=== PATIENT | male | born 1970 | race Caucasian/White ===

== ENCOUNTER 2019-01-05 12:38 | Emergency (ER) | payer BC ==
--- NOTE | 2019-01-05 13:14 | EDM.PDOC ---
ED HPI GENERAL MEDICAL PROBLEM - General Chief Complaint: ENT Problem Stated Complaint: SORE THROAT Time Seen by Provider: 01/05/19 12:47 Source of Information: Reports: Patient History Limitations: Reports: No Limitations - History of Present Illness INITIAL COMMENTS - FREE TEXT/NARRATIVE: HISTORY AND PHYSICAL: History of present illness: Patient is a 48-year-old male who presents to the emergency room with complaints of sore throat and sensation of swelling. He states he does have a history of tonsillitis and strep throat. He denies any difficulty breathing, drooling or shortness of breath. Patient denies any fever, chills, headache, change in vision, syncope or near syncope. Denies any chest pain, back pain, or cough. Denies any abdominal pain, nausea, vomiting, diarrhea, constipation or dysuria. Has not noted any blood in urine or stool. Patient has been eating and drinking appropriately. Review of systems: As per history of present illness and below otherwise all systems reviewed and negative. Past medical history: As per history of present illness and as reviewed below otherwise noncontributory. Surgical history: As per history of present illness and as reviewed below otherwise noncontributory. Social history: See social history for further information Family history: As per history of present illness and as reviewed below otherwise noncontributory. Physical exam: General: Well-developed and well-nourished 48-year-old male. Alert and oriented. Nontoxic appearing and in no acute distress. HEENT: Atraumatic, normocephalic, pupils equal and reactive bilaterally, negative for conjunctival pallor or scleral icterus, mucous membranes moist, TMs normal bilaterally, throat erythematous without exudate (no pillar shifting or fullness), neck supple, nontender, trachea midline. No drooling or trismus noted. No meningeal signs. No hot potato voice noted. Lungs: Clear to auscultation, breath sounds equal bilaterally, chest nontender. Heart: S1S2, regular rate and rhythm without overt murmur Abdomen: Soft, nondistended, nontender. Negative for masses or hepatosplenomegaly. Negative for costovertebral tenderness. Pelvis: Stable nontender. Genitourinary: Deferred. Rectal: Deferred. Skin: Intact, warm, dry. No lesions or rashes noted. Extremities: Atraumatic, moves all extremities per self without difficulty or deficits, negative for cords or calf pain. Neurovascular unremarkable. Neuro: Awake, alert, oriented. Cranial nerves II through XII unremarkable. Cerebellum unremarkable. Motor and sensory unremarkable throughout. Exam nonfocal. Notes: Due to patient's physical examination and past history and treat him with Augmentin and a Medrol Dosepak. Supportive care measures were reviewed and discussed. Voices understanding and is agreeable to plan of care. Denies any further questions or concerns at this time. Diagnostics: None Therapeutics: None Prescription: Augmentin Medrol Dosepak Impression: Pharygitis Plan: 1. Use cough drops as needed for throat discomfort. Drink plenty of fluids to stay hydrated. 2. Take antibiotic and medrol dosepak as directed.. 3. Alternate Ibuprofen and Tylenol as needed for discomfort. 3. Follow up with your primary care provider. 4. Return to the ED as needed and as discussed. Definitive disposition and diagnosis as appropriate pending reevaluation and review of above. Throat Pain Score (Numeric/FACES): 6 - Related Data Allergies Allergy/AdvReac Type Severity Reaction Status Date / Time No Known Allergies Allergy Verified 01/05/19 12:58 Home Meds: Home Meds Fenofibrate [Lipofen] 160 mg PO DAILY 12/26/14 [History] Losartan/Hydrochlorothiazide [Losartan-HCTZ 100-25 MG] 1 tab PO DAILY 12/26/14 [ History] Amoxicillin/Clavulanate K [Augmentin 875-125 MG] 1 tab PO BID 20 Days #10 tab [Rx] Canagliflozin [Invokana] 300 mg PO DAILY 01/05/19 [History] amLODIPine Besylate [Amlodipine Besylate] 5 mg PO DAILY 01/05/19 [History] metFORMIN HCl [Metformin HCl ER] 2,000 mg PO DAILY 01/05/19 [History] methylPREDNISolone [Medrol] 1 dose PO DAILY #1 dospk 01/05/19 [Rx] ED ROS ENT - Review of Systems Review Of Systems: ROS reveals no pertinent complaints other than HPI. ED EXAM, ENT - Physical Exam Exam: See Below (See dictation) Course - Vital Signs Last Recorded V/S: Last Vital Signs Temp 97.7 F 01/05/19 12:56 Pulse 119 H 01/05/19 13:43 Resp 18 01/05/19 13:43 BP 145/93 H 01/05/19 13:43 Pulse Ox 93 L 01/05/19 13:43 Departure - Departure Time of Disposition: 13:13 Disposition: Home, Self-Care 01 Clinical Impression: Pharyngitis Qualifiers: Pharyngitis/tonsillitis etiology: other specified organisms Qualified Code(s): J02.8 - Acute pharyngitis due to other specified organisms - Discharge Information Prescriptions: Amoxicillin/Clavulanate K [Augmentin 875-125 MG] 1 tab PO BID 20 Days #10 tab methylPREDNISolone [Medrol] 1 dose PO DAILY #1 dospk Instructions: Pharyngitis, [id number] Referrals: PCP,None [Primary Care Provider] - Forms: ED Department Discharge Additional Instructions: The following information is given to patients seen in the emergency department who are being discharged to home. This information is to outline your options for follow-up care. We provide all patients seen in our emergency department with a follow-up referral. The need for follow-up, as well as the timing and circumstances, are variable depending upon the specifics of your emergency department visit. If you don't have a primary care physician on staff, we will provide you with a referral. We always advise you to contact your personal physician following an emergency department visit to inform them of the circumstance of the visit and for follow-up with them and/or the need for any referrals to a consulting specialist. The emergency department will also refer you to a specialist when appropriate. This referral assures that you have the opportunity for follow-up care with a specialist. All of these measure are taken in an effort to provide you with optimal care, which includes your follow-up. Under all circumstances we always encourage you to contact your private physician who remains a resource for coordinating your care. When calling for follow-up care, please make the office aware that this follow-up is from your recent emergency room visit. If for any reason you are refused follow-up, please contact the [facility] Emergency Department at and asked to speak to the emergency department charge nurse. [facility] [address] [place] [id number] [facility] [address] [place] [address] 1. Use cough drops as needed for throat discomfort. Drink plenty of fluids to stay hydrated. 2. Take antibiotic and medrol dosepak as directed.. 3. Alternate Ibuprofen and Tylenol as needed for discomfort. 3. Follow up with your primary care provider. 4. Return to the ED as needed and as discussed.
[2019-01-05 13:48] VITALS: BP 145/93
== END 2019-01-05 13:43 | disposition home or self-care (01) ==
LOC: MW.ED 12:38
DX: J02.8 Acute pharyngitis due to other specified organisms (principal); Z79.899 Other long term (current) drug therapy
CPT/HCPCS: 99282; 99283

== ENCOUNTER 2021-09-02 07:05 | Emergency (ER) | payer BC ==
--- NOTE | 2021-09-02 07:06 | EDM.PDOC ---
ED HPI GENERAL MEDICAL PROBLEM - General Stated Complaint: FEVER, COUGH Time Seen by Provider: 09/02/21 07:06 Source of Information: Reports: Patient History Limitations: Reports: No Limitations - History of Present Illness INITIAL COMMENTS - FREE TEXT/NARRATIVE: 51-year-old male past medical history hypertension, diabetes presents for nausea, vomiting, diarrhea, fever, cough. Patient notes that he received his Covid vaccination booster shot 3 days ago. The next day he began to develop subjective fevers, nonproductive cough, body aches, nausea, mild sore throat. He attributed these symptoms to side effects of the booster vaccination. Symptoms continued yesterday. This morning he developed vomiting and noticed his oxygenation to be 88% on home pulse oximeter. This prompted him to seek medical attention. - Related Data Allergies Allergy/AdvReac Type Severity Reaction Status Date / Time No Known Allergies Allergy Verified 01/05/19 12:58 Home Meds: Home Meds Fenofibrate [Lipofen] 160 mg PO DAILY 12/26/14 [History] Losartan/Hydrochlorothiazide [Losartan-HCTZ 100-25 MG] 1 tab PO DAILY 12/26/14 [History] Canagliflozin [Invokana] 300 mg PO DAILY 01/05/19 [History] amLODIPine Besylate [Amlodipine Besylate] 5 mg PO DAILY 01/05/19 [History] metFORMIN HCl [Metformin HCl ER] 2,000 mg PO DAILY 01/05/19 [History] Past Medical History Cardiovascular History: Reports: Hypertension Endocrine/Metabolic History: Reports: Diabetes, Type II - Infectious Disease History Infectious Disease History: Reports: Chicken Pox, Measles, Mumps Social & Family History - Family History Family Medical History: No Pertinent Family History ED ROS GENERAL - Review of Systems Review Of Systems: Comprehensive ROS is negative, except as noted in HPI. ED EXAM, GENERAL - Physical Exam Exam: See Below Exam Limited By: No Limitations General Appearance: Alert, WD/WN, No Apparent Distress Ears: Hearing Grossly Normal Throat/Mouth: Normal Voice, No Airway Compromise Head: Atraumatic, Normocephalic Respiratory/Chest: No Respiratory Distress, Lungs Clear, Normal Breath Sounds, No Accessory Muscle Use Cardiovascular: Normal Peripheral Pulses, Tachycardia GI/Abdominal: Soft, Non-Tender Extremities: Normal Inspection Neurological: Alert, Normal Cognition, Normal Gait Psychiatric: Normal Affect, Normal Mood Skin Exam: Warm, Dry, Intact, Normal Color #1 Interpretation EKG Date: 09/02/21 Time: 07:33 Rhythm: NSR Rate (Beats/Min): 115 [place]: Normal P-Wave: Present QRS: Normal ST-T: Normal QT: Normal IL/PQ Interval: 147 EKG Interpretation Comments: sinus tachycardia Course - Vital Signs Last Recorded V/S: Last Vital Signs Temp 99.9 F 09/02/21 08:36 Pulse 104 H 09/02/21 08:36 Resp 18 09/02/21 07:14 BP 130/84 09/02/21 08:36 Pulse Ox 94 L 09/02/21 08:36 - Orders/Labs/Meds Orders: Active Orders 24 hr Category Date Time Status Saline Lock Insert [OM.PC] Stat Oth 09/02/21 07:23 Ordered Labs: Laboratory Tests 09/02/21 09/02/21 09/02/21 Range/Units 07:55 07:55 07:55 WBC 8.10 (4.0-11.0) K/uL RBC 5.23 (4.50-5.90) M/uL Hgb 15.3 (13.0-17.0) g/dL Hct 43.5 (38.0-50.0) % MCV 83.2 (80.0-98.0) fL MCH 29.3 (27.0-32.0) pg MCHC 35.2 (31.0-37.0) g/dL RDW Std Deviation 43.7 (28.0-62.0) fl RDW Coeff of [place] 14 (11.0-15.0) % Plt Count 207 (150-400) K/uL MPV 9.70 (7.40-12.00) fL Neut % (Auto) 55.2 (48.0-80.0) % Lymph % (Auto) 27.5 (16.0-40.0) % Phillips % (Auto) 12.0 (0.0-15.0) % Eos % (Auto) 5.1 (0.0-7.0) % Baso % (Auto) 0.2 (0.0-1.5) % Neut # (Auto) 4.5 (1.4-5.7) K/uL Lymph # (Auto) 2.2 (0.6-2.4) K/uL Phillips # (Auto) 1.0 H (0.0-0.8) K/uL Eos # (Auto) 0.4 (0.0-0.7) K/uL Baso # (Auto) 0.0 (0.0-0.1) K/uL Nucleated RBC % 0.0 /100WBC Nucleated RBCs # 0 K/uL INR 1.03 APTT 28.5 (18.6-31.3) SEC D-Dimer, Quantitative 0.54 H (0.0-0.50) mg/L FEU Sodium 139 (136-148) mmol/L Potassium 3.5 (3.5-5.1) mmol/L Chloride 102 (98-107) mmol/L Carbon Dioxide 24.5 (21.0-32.0) mmol/L BUN 10 (7.0-18.0) mg/dL Creatinine 0.8 (0.8-1.3) mg/dL Est Cr Clr Drug Dosing TNP Estimated GFR (MDRD) > 60.0 ml/min Glucose 113 H (74-106) mg/dL Lactic Acid (0.4-2.0) mmol/L Calcium 8.8 (8.5-10.1) mg/dL Magnesium 2.1 (1.8-2.4) mg/dL Troponin I < 0.050 (0.000-0.056) ng/mL C-Reactive Protein 4.40 H (0.00-0.90) mg/dL Influenza Type A RNA (NEGATIVE) Influenza Type B RNA (NEGATIVE) SARS-CoV-2 RNA (MARY JANE) (NEGATIVE) 09/02/21 09/02/21 Range/Units 07:55 07:55 WBC (4.0-11.0) K/uL RBC (4.50-5.90) M/uL Hgb (13.0-17.0) g/dL Hct (38.0-50.0) % MCV (80.0-98.0) fL MCH (27.0-32.0) pg MCHC (31.0-37.0) g/dL RDW Std Deviation (28.0-62.0) fl RDW Coeff of Lxeus (11.0-15.0) % Plt Count (150-400) K/uL MPV (7.40-12.00) fL Neut % (Auto) (48.0-80.0) % Lymph % (Auto) (16.0-40.0) % Phillips % (Auto) (0.0-15.0) % Eos % (Auto) (0.0-7.0) % Baso % (Auto) (0.0-1.5) % Neut # (Auto) (1.4-5.7) K/uL Lymph # (Auto) (0.6-2.4) K/uL Phillips # (Auto) (0.0-0.8) K/uL Eos # (Auto) (0.0-0.7) K/uL Baso # (Auto) (0.0-0.1) K/uL Nucleated RBC % /100WBC Nucleated RBCs # K/uL INR APTT (18.6-31.3) SEC D-Dimer, Quantitative (0.0-0.50) mg/L FEU Sodium (136-148) mmol/L Potassium (3.5-5.1) mmol/L Chloride (98-107) mmol/L Carbon Dioxide (21.0-32.0) mmol/L BUN (7.0-18.0) mg/dL Creatinine (0.8-1.3) mg/dL Est Cr Clr Drug Dosing Estimated GFR (MDRD) ml/min Glucose (74-106) mg/dL Lactic Acid 1.4 (0.4-2.0) mmol/L Calcium (8.5-10.1) mg/dL Magnesium (1.8-2.4) mg/dL Troponin I (0.000-0.056) ng/mL C-Reactive Protein (0.00-0.90) mg/dL Influenza Type A RNA NEGATIVE (NEGATIVE) Influenza Type B RNA NEGATIVE (NEGATIVE) SARS-CoV-2 RNA (MARY JANE) POSITIVE H (NEGATIVE) Meds: Medications Discontinued Medications Generic Name Dose Route Start Last Admin Trade Name Freq PRN Reason Stop Dose Admin Acetaminophen 1,000 mg 09/02/21 07:23 09/02/21 07:58 Acetaminophen 500 Mg Tab PO 09/02/21 07:24 1,000 mg ONETIME ONE Administration Sodium Chloride 1,000 mls @ 999 mls/hr 09/02/21 07:23 09/02/21 07:59 Normal Saline IV 09/02/21 08:23 999 mls/hr .Bolus ONE Administration Ketorolac Tromethamine 15 mg 09/02/21 07:23 09/02/21 07:59 Ketorolac 15 Mg/Ml Sdv IVPUSH 09/02/21 07:24 Not Given STAT STA Ketorolac Tromethamine 15 mg 09/02/21 07:39 09/02/21 07:58 Ketorolac 30 Mg/Ml Sdv IVPUSH 09/02/21 07:40 15 mg ONETIME ONE Administration Ondansetron HCl 4 mg 09/02/21 07:23 09/02/21 07:58 Ondansetron 4 Mg/2 Ml Sdv IVPUSH 09/02/21 07:24 4 mg ONETIME ONE Administration - Re-Assessments/Exams Free Text/Narrative Re-Assessment/Exam: 09/02/21 07:27 Patient presents with Covid/influenza-like symptoms. He is fully vaccinated and recently received a booster shot. Will get labs including D-dimer to screen for PE. Will give IV fluid bolus, Toradol, Tylenol, Zofran for symptomatic relief while working up. 09/02/21 09:10 Will get CTA to r/o PE in setting of elevated D-Dimer 09/02/21 10:40 CT imaging does not show evidence of pulmonary embolism. Further there is no evidence of Covid pneumonia. Patient symptoms are likely secondary to Covid infection. Will discharge with instructions to take Motrin Tylenol as needed. Departure - Departure Time of Disposition: 10:40 Disposition: Home, Self-Care 01 Condition: Good Clinical Impression: COVID-19 - Discharge Information Instructions: COVID-19: What to Do If You Are Sick- CDC (11/24/2020) Referrals: Fred Rios MD [Primary Care Provider] - Additional Instructions: Your Covid test is positive. Your CT imaging does not show any evidence of blood clots in the lungs nor any evidence of Covid pneumonia. Your symptoms are likely to not progressed to serious disease considering you have gotten the vaccination and booster shot. Unfortunately with this new omicron variant we are seeing a lot of vaccinated people that are getting Covid, however, very few of them are getting sick enough to need hospitalization. You can take ibuprofen 600 mg and Tylenol 1000 mg every 6 hours as needed for fever management. If you have worsening difficulty breathing or chest pain please come back to the emergency department for reassessment. The following information is given to patients seen in the emergency department who are being discharged to home. This information is to outline your options for follow-up care. We provide all patients seen in our emergency department with a follow-up referral. The need for follow-up, as well as the timing and circumstances, are variable depending upon the specifics of your emergency department visit. If you don't have a primary care physician on staff, we will provide you with a referral. We always advise you to contact your personal physician following an emergency department visit to inform them of the circumstance of the visit and for follow-up with them and/or the need for any referrals to a consulting specialist. The emergency department will also refer you to a specialist when appropriate. This referral assures that you have the opportunity for follow-up care with a specialist. All of these measure are taken in an effort to provide you with optimal care, which includes your follow-up. Under all circumstances we always encourage you to contact your private physician who remains a resource for coordinating your care. When calling for follow-up care, please make the office aware that this follow-up is from your recent emergency room visit. If for any reason you are refused follow-up, please contact the [facility] Emergency Department at and asked to speak to the emergency department charge nurse. Please follow up with your primary care physician. If you do not have a primary care physician, see below: [facility] Primary [facility] [address] [place] [id number] [facility] [address] [place] [address] [facility] [address] [place] [id number] Sepsis Event Note (ED) - Focused Exam Vital Signs: Vital Signs Temp Temp Temp Pulse Resp BP Pulse Ox 09/02/21 08:36 99.9 F 104 H 130/84 94 L 09/02/21 08:28 99.9 F 09/02/21 07:58 100.6 F 09/02/21 07:29 100.6 F 09/02/21 07:14 97.7 F 123 H 18 166/91 H 95 - My Orders Last 24 Hours: My Active Orders 09/02/21 07:23 Saline Lock Insert [OM.PC] Stat - Assessment/Plan Last 24 Hours: My Active Orders 09/02/21 07:23 Saline Lock Insert [OM.PC] Stat
[2021-09-02] MEDS ORDERED: Ketorolac 15 MG/ML SDV IVPUSH STA (07:23)
[2021-09-02] MEDS ORDERED: Acetaminophen 500 MG Tab PO ONE (07:23)
[2021-09-02] MEDS ORDERED: Ondansetron 4 MG/2 ML SDV IVPUSH ONE (07:23)
[2021-09-02] MEDS ORDERED: Sodium Chloride 0.9% 1,000 ML IV ONE (07:23)
[2021-09-02] MEDS ORDERED: Ketorolac 30 MG/ML SDV IVPUSH ONE (07:39)
--- NOTE | 2021-09-02 08:23 | CR ---
INDICATION: Cough. TECHNIQUE: Chest 1 view. COMPARISON: None FINDINGS: Cardiovascular and mediastinum: Heart size and vasculature are normal in caliber and appearance. Mediastinum is within normal limits. Lungs and pleural space: Lungs are clear. No sign of infiltrate or mass. No sign of pleural effusion. No pneumothorax. Bones and soft tissues: No significant findings. IMPRESSION: No findings are seen on portable chest x-ray to explain cough. Dictated by Fred Melgar MD @ 09/02/2021 8:20:51 AM (Electronically Signed)
[2021-09-02 08:30] LABS: BLOOD UREA NITROGEN,BUN 10 mg/dL (7.0-18.0); CARBON DIOXIDE,CO2 24.5 mmol/L (21.0-32.0); CHLORIDE,CL 102 mmol/L (98-107); GLUCOSE RANDOM 113 mg/dL (74-106); POTASSIUM,K 3.5 mmol/L (3.5-5.1); SODIUM,NA 139 mmol/L (136-148)
[2021-09-02 09:20] LABS: CORONAVIRUS COVID-19 NAA POSITIVE (NEGATIVE); INFLUENZA A NAA NEGATIVE (NEGATIVE); INFLUENZA B NAA NEGATIVE (NEGATIVE)
--- NOTE | 2021-09-02 10:34 | CT ---
Indication: Cough. Chest pain. Shortness of breath. Tachycardia. Elevated D-dimer. Technique: CT pulmonary angiogram. 100 cc of Isovue 370 IV. Coronal/sagittal reconstruction images. Comparison: None. Findings: The contrast bolus is not optimal for pulmonary emboli evaluation. The main pulmonary artery measures 137 Hounsfield units. Typically, for a diagnostic quality pulmonary CTA, the main pulmonary artery should exceed 250 Hounsfield units. No central pulmonary emboli are demonstrated. It is difficult to exclude peripheral emboli based on the timing of this contrast bolus. None are seen. No thoracic lymphadenopathy. No evidence for an acute aortic syndrome. Lung windows demonstrate no endobronchial mass. No bronchiectasis. No architectural distortion. Mosaic attenuation in the lung parenchyma is nonspecific, but often secondary to small airways disease. This is seen best in the left lower lobe. No traction bronchiectasis. No pneumothorax. Evaluation the upper abdomen demonstrates diffuse hepatic steatosis with hepatomegaly. Cholecystectomy. No adrenal mass. Mild thickening of the medial limb of the right adrenal. Spleen size is normal. No pancreatic mass or glandular atrophy bone windows demonstrate no suspicious bone lesions. There is degenerative disc disease. On sagittal reconstruction images, vertebral body heights are maintained. Impression: 1. Suboptimal contrast bolus for PE evaluation. 2. No pulmonary emboli are visualized. 3. No evidence for right heart strain. No pulmonary infarct. 4. Mild mosaic attenuation in the lung parenchyma, nonspecific, but often secondary to small airways disease/air-trapping. 5. Typical pulmonary findings of COVID-19 pneumonia are absent in this case. 6. Diffuse hepatic steatosis/hepatomegaly. No splenomegaly or upper abdominal ascites. Please note that all CT scans at this facility use dose modulation, iterative reconstruction, and/or weight-based dosing when appropriate to reduce radiation dose to as low as reasonably achievable. Dictated by Fred Melgar MD @ 09/02/2021 10:32:57 AM (Electronically Signed)
[2021-09-02 10:58] VITALS: BP 141/86; PULSE 99
[2021-09-02] MEDS ORDERED: Iopamidol 755 MG/ML 500 ML Multipack Bottle IVPUSH ONE (11:34)
== END 2021-09-02 10:58 | disposition home or self-care (01) ==
LOC: MW.ED 07:05
DX: U07.1 COVID-19 (principal); I10 Essential (primary) hypertension; E11.9 Type 2 diabetes mellitus without complications; Z79.899 Other long term (current) drug therapy; Z79.84 Long term (current) use of oral hypoglycemic drugs
CPT/HCPCS: 0240U; 36415; 71045; 71275; 80048; 83605; 83735; 84484; 85025; 85379; 85610; 85730; 86140; 93005; 96374; 96375; 99284; A9270; J1885; J2405; J7030; Q9967; 93010; 99285

== ENCOUNTER 2024-05-18 18:27 | Emergency (ER) | payer BC ==
[2024-05-18] MEDS: Sodium Chloride 0.9% 10 ML Syringe FLUSH PRN (18:49)
[2024-05-18] MEDS: Sodium Chloride 0.9% 2.5 ML Syringe FLUSH PRN (18:49)
[2024-05-18] MEDS: LORazepam 2 MG/ML SDV IVPUSH ONE (18:49)
[2024-05-18 18:50] LABS: BASOPHILS ABSOLUTE AUTO 0.05 K/uL (0.00-0.20); BASOPHILS PERCENT AUTO 0.5 % (0.0-1.0); EOSINOPHILS ABSOLUTE AUTO 0.33 K/uL (0.00-0.45); HEMATOCRIT 41.9 % (42.0-52.0); HEMOGLOBIN 14.8 g/dL (14.0-18.0); IMMATURE GRAN ABSOLUTE AUTO 0.03 K/uL (0.00-0.05); IMMATURE GRAN PERCENT AUTO 0.3 % (0.0-0.4); LYMPHOCYTES ABSOLUTE AUTO 4.32 K/uL (1.00-4.80); LYMPHOCYTES PERCENT AUTO 39.6 % (24.0-44.0); MEAN CORPUSCULAR HEMOGLOBIN 29.5 pg (28.0-32.0); MEAN CORPUSCULAR HGB CONC 35.3 g/dL (32.0-36.0); MEAN CORPUSCULAR VOLUME 83.5 fL (83.0-99.0); MEAN PLATELET VOLUME 9.2 fL (9.4-12.4); MONOCYTES ABSOLUTE AUTO 1.06 K/uL (0.00-0.80); MONOCYTES PERCENT AUTO 9.7 % (0.0-8.0); NEUTROPHILS ABSOLUTE AUTO 5.11 K/uL (1.80-7.70); NEUTROPHILS PERCENT AUTO 46.9 % (41.0-71.0); PLATELET COUNT,PLT 308 K/uL (150-400); RED BLOOD CELL COUNT 5.02 M/uL (4.52-5.90)
[2024-05-18 19:16] LABS: A/G RATIO 1.3 (0.9-1.6); ALANINE AMINOTRANSFERASE,ALT 66 IU/L (14-63); ALBUMIN 4.5 g/dL (3.4-5.0); ALKALINE PHOSPHATASE 56 U/L (46-116); ASPARTATE AMNIOTRANSFERASE,AST 44 IU/L (15-37); BLOOD UREA NITROGEN,BUN 15 mg/dL (7.0-18.0); CALCIUM 9.7 mg/dL (8.5-10.1); CARBON DIOXIDE,CO2 25.5 mmol/L (21.0-32.0); CHLORIDE,CL 101 mmol/L (98-107); CREATININE 0.9 mg/dL (0.8-1.3); EST CRCL DRUG DOSING (CG) 108.51 mL/min; ESTIMATED GFR 103 mL/min (>60); GLUCOSE RANDOM 105 mg/dL (74-106); POTASSIUM,K 3.5 mmol/L (3.5-5.1); PROTEIN TOTAL,TP 7.9 g/dL (6.4-8.2); SODIUM,NA 139 mmol/L (136-148)
[2024-05-18] MEDS: Ketorolac 30 MG/ML SDV IVPUSH ONE (19:44)
[2024-05-18 20:25] VITALS: BP 132/82; PULSE 92
== END 2024-05-18 20:25 | disposition home or self-care (01) ==
LOC: MW.ED 18:27
DX: R51.9 Headache, unspecified (principal); R11.2 Nausea with vomiting, unspecified; I10 Essential (primary) hypertension; F41.9 Anxiety disorder, unspecified; E78.00 Pure hypercholesterolemia, unspecified; E11.9 Type 2 diabetes mellitus without complications; Z79.899 Other long term (current) drug therapy; Z79.84 Long term (current) use of oral hypoglycemic drugs; Z79.82 Long term (current) use of aspirin; Z75.8 Other problems related to medical facilities and other health care
CPT/HCPCS: 36415; 80053; 84484; 85025; 93005; 96374; 96375; 99284; J1885; J2060; J3490; 93010